=== PATIENT | male | born 1990 | race American Indian/Alaskan Native ===

== ENCOUNTER 2019-05-26 06:29 | Emergency (ER) | payer SELFPAY ==
[2019-05-26 06:41] VITALS: BP 137/100
--- NOTE | 2019-05-26 08:19 | Emergency Department Report ---
ED Chest Pain HPI - General Chief Complaint: Chest Pain Stated Complaint: CHEST PAIN/SORE THROAT Time Seen by Provider: 05/26/19 08:10 Source: patient Mode of arrival: Ambulatory Limitations: No Limitations - History of Present Illness Initial Comments: Mrs. Ramires is a healthy 29-year-old male who presents with mild central chest ache for the past month. He also had had a toothache for the past week. Pain is intermittent in the chest. Gradual onset. No fever. No cough. No wheezing. He smokes tobacco. Does not have a PCP. Recently moved from [place] [facility]. Complaint: chest pain -: Gradual, week(s) (4) Onset: during rest Pain Location: substernal Severity: mild Quality: aching Consistency: intermittent Improves With: nothing Worsens With: nothing - Related Data Allergies Allergy/AdvReac Type Severity Reaction Status Date / Time No Known Allergies Allergy Unverified 05/26/19 07:03 Heart Score - HEART Score History: Slightly suspicious EKG: Normal Age: < 45 Risk factors: No known risk factors Troponin: < normal limit HEART Score: 0 ED Review of Systems ROS: Stated complaint: CHEST PAIN/SORE THROAT Other details as noted in HPI Comment: All other systems reviewed and negative Constitutional: denies: fever, malaise ENT: dental pain Respiratory: denies: cough, shortness of breath, wheezing Cardiovascular: chest pain ED Past Medical Hx - Past Medical History Previous Medical History?: No - Surgical History Past Surgical History?: No - Social History Smoking Status: Current Every Day Smoker Substance Use Type: Alcohol ED Physical Exam - General Limitations: No Limitations General appearance: alert, in no apparent distress, other (appears well, no facial swelling no neck swelling) - Head Head exam: Present: atraumatic, normocephalic - Eye Eye exam: Present: normal appearance - ENT ENT exam: Present: mucous membranes moist - Neck Neck exam: Present: normal inspection, full ROM - Respiratory Respiratory exam: Present: normal lung sounds bilaterally. Absent: respiratory distress, wheezes, rales, rhonchi - Cardiovascular Cardiovascular Exam: Present: regular rate, normal rhythm. Absent: systolic murmur, diastolic murmur, rubs, gallop - GI/Abdominal GI/Abdominal exam: Present: soft, normal bowel sounds. Absent: distended, tenderness, guarding, rebound - Rectal Rectal exam: Present: deferred - Extremities Exam Extremities exam: Present: normal inspection - Back Exam Back exam: Present: normal inspection - Neurological Exam Neurological exam: Present: alert, oriented X3 - Psychiatric Psychiatric exam: Present: normal affect, normal mood - Skin Skin exam: Present: warm, dry, intact, normal color. Absent: rash ED Course Vital Signs 05/26/19 06:36 Temperature 98.8 F Pulse Rate 81 Respiratory 18 Rate Blood Pressure 137/100 O2 Sat by Pulse 97 Oximetry ED Medical Decision Making - EKG Data EKG shows normal: sinus rhythm, axis, intervals, QRS complexes, ST-T waves Rate: normal - Radiology Data Radiology results: report reviewed PA/Lateral two-view radiographs, interpreted by me. My impression: No infiltrate, no pneumothorax, normal cardiac silhouette, normal mediastinum, no gross osseous abnormality, no acute process Chest X-ray - Medical Decision Making Mr. Ramires presents with intermittent central chest safe for the past 1 month. No indication of pneumothorax, pericarditis or pulmonary embolism. Highly atypical for ACS. Differential diagnosis includes bronchospasm due to tobacco use, GERD. Recommended smoking cessation. Also recommended outpatient examination by primary care physician. He is new to the area from [place]. I have referred him to a local clinic. In regards to dental pain, no acute emergency condition is present at this time. I have referred him to dental clinics. Critical care attestation.: If time is entered above; I have spent that time in minutes in the direct care of this critically ill patient, excluding procedure time. ED Disposition Clinical Impression: Chest pain Disposition: DC-01 TO HOME OR SELFCARE Is pt being admited?: No Does the pt Need Aspirin: No Condition: Stable Instructions: Chest Pain (ED) Referrals: [facility] [Outside] - 3-5 Days [facility] [Outside] - 3-5 Days Forms: Work/School Release Form(ED)
--- NOTE | 2019-05-26 12:35 | XRay Report ---
CHEST 2 VIEWS INDICATION: Chest Pain. COMPARISON: None FINDINGS: Support devices: None. Heart: Within normal limits. Lungs: No acute air space or interstitial disease. Pleura: No significant pleural effusion. No pneumothorax. Additional findings: None. IMPRESSION: 1. No acute findings. Signer Name: Santiago Carrion MD Signed: 05/26/2019 12:31 PM Workstation Name: [id number]
== END 2019-05-26 08:27 | disposition home or self-care (01) ==
LOC: ED 06:29
DX: R07.2 Precordial pain (principal); K08.89 Other specified disorders of teeth and supporting structures; F17.200 Nicotine dependence, unspecified, uncomplicated
CPT/HCPCS: 71046; 93005; 93010; 99283